=== PATIENT | female | born 1995 | race Caucasian/White ===

== ENCOUNTER 2018-09-05 15:59 | Emergency (ER) | payer OTHER ==
[~2018-09-05] VITALS: Ht 172.7 cm; Wt 152.9 kg
[~2018-09-05 15:59] MED LIST: AMOXICILLIN 50500 MG PO; CEPHALEXIN 500500 M3 PO; CIPROFLOXACIN500 M1 PO; CYCLOBENZAPRINE5 MG PO; DICLOFENAC SODI75 MG PO; FLEXERIL PO; FLOMAX0.4 MG PO; HYDROCODONE-AP1 EAC6 PO; IBUPROFEN 800800 M1 PO; NORCO 5-325 TA1 EACH PO; ONDANSETRON HCL4 M2 PO; ROBAXIN 750 MG750 M1 PO; TRAMADOL 50 MG50 MG PO
[2018-09-05 16:03] VITALS: BP 142/109
[2018-09-05] MEDS ORDERED: ZOLOFT25 MG PO (16:08)
[2018-09-05] MEDS ORDERED: METFORMIN HCL500 MG PO (16:08)
[2018-09-05] MEDS ORDERED: NORCO 5-325 TA1 EACH PO (16:10)
[2018-09-05] MEDS ORDERED: LIDOCAINE VISC100 ML PO (16:10)
== END 2018-09-05 16:18 | disposition home or self-care (01) ==
LOC: M.ERS 15:59
DX: K08.89 Other specified disorders of teeth and supporting structures (principal); Z88.8 Allergy status to other drugs, medicaments and biological substances; Z91.013 Allergy to seafood

== ENCOUNTER 2018-11-16 09:51 | Emergency (ER) | payer OTHER ==
[~2018-11-16] VITALS: Ht 175.3 cm; Wt 158.8 kg
[~2018-11-16 09:51] MED LIST changes: +LIDOCAINE VISC100 ML PO; +METFORMIN HCL500 MG PO; +ZOLOFT25 MG PO
[2018-11-16 10:27] LABS: URINE BILIRUBIN NEGATIVE (Negative); URINE BLOOD TRACE (Negative); URINE CLARITY CLEAR; URINE COLOR YELLOW; URINE GLUCOSE-RANDOM NEGATIVE (Negative); URINE KETONES NEGATIVE (Negative); URINE NITRITE-REFLEX NEGATIVE (Negative); URINE PROTEIN NEGATIVE (Negative); URINE SPECIFIC GRAVITY >= 1.030 (1.005-1.030); URINE UROBILINOGEN 0.2 E.U./dl (0.2-1.0)
[2018-11-16 10:27] LABS: ABSOLUTE BASOPHILS 0.1 thou/uL (0.0-0.2); ABSOLUTE EOSINOPHILS 0.3 thou/uL (0.0-0.7); ABSOLUTE LYMPHOCYTES 2.6 thou/uL (0.8-5.3); ABSOLUTE MONOCYTES 0.4 thou/uL (0.0-1.2); ABSOLUTE NEUTROPHILS 5.5 thou/uL (1.6-8.1); BASOPHILS 1.2 %; EOSINOPHILS 3.8 %; HEMATOCRIT 40.2 % (37.0-47.0); HEMOGLOBIN 13.5 gm/dL (12.0-15.0); LYMPHOCYTES 29.2 %; MCH 27.6 pg (26.0-34.0); MCHC 33.5 g/dL (28.0-37.0); MCV 82.3 fL (80.0-100.0); MONOCYTES 4.8 %; MPV 9.4 fl. (7.2-11.1); NUCLEATED RBCS 0 /100WBC; PLATELET COUNT* 254 thou/uL (150-400); RBC 4.88 mil/uL (4.20-5.00)
[2018-11-16 10:30] LABS: URINE LEUKOCYTES-REFLEX 2+ (Negative)
[2018-11-16 10:35] LABS: CALCIUM 9.5 mg/dL (8.5-10.1); CREATININE 0.7 mg/dL (0.6-1.3); POTASSIUM 4.1 mmol/L (3.5-5.1)
[2018-11-16 10:40] LABS: ALBUMIN 3.6 g/dL (3.4-5.0); TOTAL BILIRUBIN 0.3 mg/dL (<0.1-1.0); TOTAL PROTEIN 7.3 g/dL (6.4-8.2)
[2018-11-16 10:43] LABS: BACTERIA-REFLEX 1-9 Few /HPF (None Seen); CASTS None Seen /LPF (None Seen); CRYSTALS None Seen /LPF (None Seen); MUCUS 4-6 Moderate strn/LPF (None Seen); SQUAMOUS >10 Many /LPF (0-3); URINE RBC 0-2 Rare /HPF (0-2)
[2018-11-16] MEDS ORDERED: KEFLEX500 M1 PO (11:03)
[2018-11-16] MEDS ORDERED: MEDROLDOSEPACK PO (11:03)
[2018-11-16] MEDS ORDERED: ACTICIN 5% CREA60 G1 TOP (11:03)
[2018-11-16 11:21] VITALS: BP 161/101
== END 2018-11-16 11:21 | disposition home or self-care (01) ==
LOC: M.ERS 09:51
PROVIDERS: Physician Assistant
DX: N39.0 Urinary tract infection, site not specified (principal); R21 Rash and other nonspecific skin eruption; E11.9 Type 2 diabetes mellitus without complications; F32.9 Major depressive disorder, single episode, unspecified; F41.9 Anxiety disorder, unspecified; Z88.8 Allergy status to other drugs, medicaments and biological substances; Z91.013 Allergy to seafood

== ENCOUNTER 2019-06-20 16:02 | Emergency (ER) | payer OTHER ==
[~2019-06-20] VITALS: Ht 172.7 cm; Wt 154.2 kg
[~2019-06-20 16:02] MED LIST changes: +ACTICIN 5% CREA60 G1 TOP; +KEFLEX500 M1 PO; +MEDROLDOSEPACK PO
[2019-06-20] MEDS ORDERED: DEPRESSION MED (16:18)
[2019-06-20] MEDS ORDERED: BIRTH CONTROL (16:18)
[2019-06-20] MEDS ORDERED: CIPROFLOXIN HC2.5 M1 OPHTHALMIC ×2 (16:51→16:54)
[2019-06-20] MEDS ORDERED: PREDNISONE 10 M10 MG PO ×2 (16:52→16:54)
[2019-06-20 17:17] VITALS: BP 128/68
== END 2019-06-20 17:18 | disposition home or self-care (01) ==
LOC: M.ERS 16:02
DX: S05.02XA Injury of conjunctiva and corneal abrasion without foreign body, left eye, initial encounter (principal); G51.0 Bell's palsy; E11.9 Type 2 diabetes mellitus without complications; Z91.013 Allergy to seafood; Z88.8 Allergy status to other drugs, medicaments and biological substances; X58.XXXA Exposure to other specified factors, initial encounter; Y93.89 Activity, other specified; Y92.89 Other specified places as the place of occurrence of the external cause; Y99.8 Other external cause status